=== PATIENT | male | born 1995 | race Asian ===

== ENCOUNTER 2022-03-24 12:00 | Emergency (ER) | payer OTHER, MEDICAID ==
[~2022-03-24] VITALS: Ht 172.7 cm; Wt 53.1 kg
[2022-03-24 12:24] VITALS: BP_SYST 127
--- NOTE | 2022-03-24 12:28 | NUR ---
Patient to ER bed 04 to gown for evaluation. Side rails up.
--- NOTE | 2022-03-24 12:57 | NUR ---
Patient aware of CT contrast for CTA to r/o PE. Signed the consent form.
[2022-03-24 12:58] LABS: BASOPHILS % (AUTO) 0.7 % (0.0-2.0); EOSINOPHILS # (AUTO) 0.3 K/uL (0.0-0.4); EOSINOPHILS % (AUTO) 4.5 % (0.0-4.0); HEMATOCRIT 46.7 % (36-54); HEMOGLOBIN 15.8 g/dL (14.0-18.0); LYMPHOCYTES # (AUTO) 1.1 K/uL (1.0-5.5); LYMPHOCYTES % (AUTO) 16.6 % (20.5-51.5); MEAN CORPUSCULAR HEMOGLOBIN 30 pg (27-31); MEAN CORPUSCULAR HGB CONC 34 % (32-36); MEAN CORPUSCULAR VOLUME 87 fL (79.0-98.0); MONOCYTES # (AUTO) 0.6 K/uL (0.0-1.0); MONOCYTES % (AUTO) 8.1 % (1.7-9.3); NEUTROPHILS # (AUTO) 4.8 K/uL (1.8-7.7); NEUTROPHILS % (AUTO) 70.1 % (40.0-70.0); PLATELET COUNT (AUTO) 268 K/uL (130-430); RED BLOOD CELL COUNT(AUTO) 5.34 MIL/uL (4.2-6.2); RED CELL DISTRIBUTION WIDTH 13.4 % (9.0-15.0); WHITE BLOOD COUNT (AUTO) 6.9 K/uL (4.8-10.8)
[2022-03-24 13:06] LABS: ANION GAP 5 (5-15); CHLORIDE 104 mmol/L (98-107); CREATININE 1.12 mg/dL (0.55-1.30); GLUCOSE 80 mg/dL (70-99); POTASSIUM 4.4 mmol/L (3.5-5.1); SODIUM SERUM 140 mmol/L (136-145); UREA NITROGEN, BLOOD 11 mg/dL (8-21)
[2022-03-24 13:07] LABS: GFR AFRICAN AMERICAN 101 mL/min (>90)
[2022-03-24] MEDS ORDERED: iohexoL 350 mgI/mL, 100 ML INFUS..BTL IV ONE (13:08)
--- NOTE | 2022-03-24 13:11 | NUR ---
PT LEFT TO CT
[2022-03-24 13:16] LABS: ALANINE AMINOTRANSFERASE 14 U/L (12-78); ALBUMIN 3.8 g/dL (3.4-4.8); ASPARTATE AMINOTRANSFERASE 14 U/L (10-37); TOTAL BILIRUBIN 0.4 mg/dL (0.0-1.0)
--- NOTE | 2022-03-24 13:23 | NUR ---
Pt moved to chair 1
[2022-03-24] MEDS ORDERED: ALBUTEROL SULFATE 0.083% 2.5 MG/3 ML VIAL.NEB INH ONE (13:45)
[2022-03-24] MEDS ORDERED: predniSONE 20 MG TABLET PO ONE (14:30)
[2022-03-24] MEDS ORDERED: ALBU2.5V7 INH (14:30)
[2022-03-24] MEDS ORDERED: PRED20TA PO (14:30)
== END 2022-03-24 15:01 | disposition home or self-care (01) ==
LOC: SED 12:00
DX: J98.01 Acute bronchospasm (principal); Z79.899 Other long term (current) drug therapy
CPT/HCPCS: 80053; 85025; 84484; 36415; 93005; 71045; 71275; 76376; 94640; 99285; Q9967; J7512; J7613